=== PATIENT | male | born 1965 | race Caucasian/White ===

== ENCOUNTER 2024-09-02 11:05 | Inpatient (IN) | payer MEDICAID, OTHER ==
[~2024-09-02] VITALS: Ht 167.6 cm; Wt 74.1 kg
[2024-09-02] MEDS: IV NS 1000 ML 1,000 ML IV ONE (11:49)
[2024-09-02 11:53] LABS: BASOPHILS # (AUTO) 0.1 K/UL (0.0-0.2); BASOPHILS % (AUTO) 0.7 % (0.0-2.0); EOSINOPHILS # (AUTO) 0.4 K/uL (0.0-0.7); EOSINOPHILS % (AUTO) 3.7 % (0.0-7.0); HEMATOCRIT 38.3 % (36.7-47.1); HEMOGLOBIN 12.1 g/dL (12.5-16.3); LYMPHOCYTES # (AUTO) 0.9 K/uL (0.8-4.8); LYMPHOCYTES % (AUTO) 8.2 % (20.5-51.5); MEAN CORPUSCULAR HEMOGLOBIN 26.1 uug (23.8-33.4); MEAN CORPUSCULAR HGB CONC 32 g/dL (32.5-36.3); MEAN CORPUSCULAR VOLUME 82.4 fL (73.0-96.2); MONOCYTES # (AUTO) 0.9 K/uL (0.1-1.30); MONOCYTES % (AUTO) 8.3 % (0.0-11.0); NEUTROPHILS # (AUTO) 8.9 K/uL (1.8-8.9); NEUTROPHILS % (AUTO) 79.1 % (38.5-71.5); PLATELET COUNT (AUTO) 202 K/uL (152-348); RED BLOOD CELL COUNT(AUTO) 4.65 MIL/uL (4.06-5.63); RED CELL DISTRIBUTION WIDTH 15.3 % (12.1-16.2); WHITE BLOOD COUNT (AUTO) 11.3 K/uL (3.6-10.2)
[2024-09-02 11:58] LABS: DIFFERENTIAL COMMENT 1
[2024-09-02 12:02] LABS: CALCIUM 8.5 mg/dL (8.5-10.1); CREATININE 4.4 mg/dL (0.6-1.3); POTASSIUM 3.6 mmol/L (3.5-5.1)
[2024-09-02 12:15] LABS: ALBUMIN 3.3 g/dL (3.4-5.0); BILIRUBIN,DIRECT 0.1 mg/dL (0.0-0.2); BILIRUBIN,TOTAL 0.2 mg/dL (0.2-1.0); TOTAL PROTEIN, SERUM 7.3 g/dL (6.4-8.2)
[2024-09-02 13:30] LABS: *BILIRUBIN,URIN NEGATIVE (NEGATIVE); *BLOOD, URINE 1+ (NEGATIVE); *CLARITY,URINE CLOUDY (CLEAR); *COLOR,URINE YELLOW (YELLOW); *KETONES,URINE NEGATIVE (NEGATIVE); *PROTEIN,URINE 3+ (NEGATIVE); *UROBILINOGEN,URINE 0.2 E.U./dl (NORMAL); LEUKOCYTE ESTERASE ,URINE 1+ (NEGATIVE); NITRITE, URINE NEGATIVE (NEGATIVE); UGLUCOSE NEGATIVE (NEGATIVE)
[2024-09-02 13:36] LABS: BACTERIA,URINE FEW /HPF (NONE SEEN); URINE AMORPHOUS URATE MODERATE /HPF; WBC,URINE 20-50 /HPF (0-3)
[2024-09-02 15:17] VITALS: BP 172/84; TEMP 98.4
[2024-09-02] MEDS ORDERED: ACET325T53 PO (16:58)
[2024-09-02] MEDS ORDERED: ALOG25TA2 PO (16:58)
[2024-09-02] MEDS ORDERED: AMLO10TA59 PO (16:58)
[2024-09-02] MEDS ORDERED: APIX2.5T PO (16:59)
[2024-09-02] MEDS ORDERED: ASCO500C18 PO (17:00)
[2024-09-02] MEDS ORDERED: CLOP75TA33 PO (17:00)
[2024-09-02] MEDS ORDERED: ROSU10TA2 PO (17:01)
[2024-09-02] MEDS ORDERED: DOCU250C14 PO (17:01)
[2024-09-02] MEDS ORDERED: FURO40TA5 PO (17:02)
[2024-09-02] MEDS ORDERED: DEXT38GE12 PO (17:03)
[2024-09-02] MEDS ORDERED: INSU100V28 SQ ×2 (17:04→17:05)
[2024-09-02] MEDS ORDERED: HYDR25TA86 PO (17:06)
[2024-09-02] MEDS ORDERED: METO25TA6 PO (17:08)
[2024-09-02] MEDS ORDERED: OMEP20TA20 PO (17:08)
[2024-09-02] MEDS ORDERED: MULT-225 PO (17:08)
[2024-09-02] MEDS ORDERED: SENN8.6T19 PO (17:09)
[2024-09-02] MEDS ORDERED: hydrALAZINE HCL 25 MG TABLET PO PRN (18:15)
[2024-09-02] MEDS ORDERED: ACETAMINOPHEN 325 MG TABLET PO PRN (18:15)
[2024-09-02 18:16] VITALS: BP 165/87; O2SAT 98
[2024-09-02] MEDS: AMLODIPINE 10 MG TABLET PO SCH (18:43)
[2024-09-02] MEDS: APIXABAN 2.5 MG TABLET PO SCH (18:44)
[2024-09-02 19:40] VITALS: BP 138/70; TEMP 97.9; O2SAT 98
[2024-09-02] MEDS: SENNOSIDES 1 TABLET PO SCH (20:18)
[2024-09-02] MEDS: ATORVASTATIN 20 MG TABLET PO SCH (20:18)
[2024-09-02] MEDS ORDERED: TEMAZEPAM 15 MG CAPSULE PO PRN (21:00)
[2024-09-02] MEDS ORDERED: HYDROMORPHONE 1 MG/1 ML DISP.SYRIN IV PRN (21:00)
[2024-09-02] MEDS ORDERED: ONDANSETRON 4 MG/2 ML VIAL IV PRN (21:00)
[2024-09-02] MEDS: DOCUSATE SODIUM 250 MG CAPSULE PO SCH (21:44)
[2024-09-02] MEDS ORDERED: DEXTROSE 50% 50 ML DISP.SYRIN IV PRN (22:00)
[2024-09-02] MEDS ORDERED: CEFTRIAXONE /D5W 50ML IVPB **ER PYXIS IV ONE (22:10)
[2024-09-02] MEDS: CEFTRIAXONE 1 G in IV DEXTROSE 5% 50 ML IV SCH (22:20)
[2024-09-02] MEDS: IV 1/2NS 1000 ML 1,000 ML IV PRN (23:08)
[2024-09-02 23:35] VITALS: BP 146/73; TEMP 98.6; O2SAT 97
[2024-09-03 05:54] VITALS: BP 139/67; TEMP 98.5; O2SAT 96
[2024-09-03] MEDS: PANTOPRAZOLE SODIUM 40 MG TABLET.DR PO SCH (06:06)
[2024-09-03] MEDS: BLOOD SUGAR DIAGNOSTIC 1 EACH STRIP VI SCH (06:36)
[2024-09-03 07:39] LABS: BASOPHILS # (AUTO) 0.1 K/UL (0.0-0.2); BASOPHILS % (AUTO) 0.6 % (0.0-2.0); EOSINOPHILS # (AUTO) 0.3 K/uL (0.0-0.7); EOSINOPHILS % (AUTO) 3.2 % (0.0-7.0); HEMATOCRIT 33.8 % (36.7-47.1); HEMOGLOBIN 11.3 g/dL (12.5-16.3); LYMPHOCYTES # (AUTO) 1.1 K/uL (0.8-4.8); LYMPHOCYTES % (AUTO) 10.1 % (20.5-51.5); MEAN CORPUSCULAR HEMOGLOBIN 27.3 uug (23.8-33.4); MEAN CORPUSCULAR HGB CONC 34 g/dL (32.5-36.3); MEAN CORPUSCULAR VOLUME 81.7 fL (73.0-96.2); MONOCYTES # (AUTO) 0.8 K/uL (0.1-1.30); MONOCYTES % (AUTO) 7.8 % (0.0-11.0); NEUTROPHILS # (AUTO) 8.2 K/uL (1.8-8.9); NEUTROPHILS % (AUTO) 78.3 % (38.5-71.5); PLATELET COUNT (AUTO) 185 K/uL (152-348); RED BLOOD CELL COUNT(AUTO) 4.13 MIL/uL (4.06-5.63); RED CELL DISTRIBUTION WIDTH 15.1 % (12.1-16.2); WHITE BLOOD COUNT (AUTO) 10.5 K/uL (3.6-10.2)
[2024-09-03 07:47] LABS: ALBUMIN 2.7 g/dL (3.4-5.0); BILIRUBIN,TOTAL 0.2 mg/dL (0.2-1.0); CREATININE 4.1 mg/dL (0.6-1.3); DIFFERENTIAL COMMENT 1; MAGNESIUM 2.2 mg/dL (1.8-2.4); PHOSPHOROUS 4.1 mg/dL (2.5-4.9); POTASSIUM 3.4 mmol/L (3.5-5.1); TOTAL PROTEIN, SERUM 6.1 g/dL (6.4-8.2)
[2024-09-03 07:51] VITALS: BP 143/78; TEMP 98.4; O2SAT 97
[2024-09-03] MEDS: METOPROLOL TARTRATE 25 MG TABLET PO SCH (08:44)
[2024-09-03] MEDS ORDERED: ALOGLIPTIN BENZOATE PO SCH (09:00)
[2024-09-03 09:01] LABS: THYROID STIMULATING HORMONE 0.518 mIU/mL (0.358-3.740)
[2024-09-03 11:12] VITALS: BP 145/75; TEMP 98; O2SAT 97
[2024-09-03] MEDS: POTASSIUM CHLORIDE 20 MEQ TAB.PRT.SR PO ONE (13:10)
[2024-09-03 14:24] VITALS: BP 142/72; TEMP 98.4; O2SAT 96
[2024-09-03 16:44] LABS: *CREATININE,URINE 31.2 mg/dL (30-125); *URINE TOTAL PROTEIN RANDOM 150.8 mg/dL (<150/24HR)
[2024-09-03 16:49] LABS: *BILIRUBIN,URIN NEGATIVE (NEGATIVE); *BLOOD, URINE 1+ (NEGATIVE); *CLARITY,URINE CLEAR (CLEAR); *COLOR,URINE YELLOW (YELLOW); *KETONES,URINE NEGATIVE (NEGATIVE); *PROTEIN,URINE 3+ (NEGATIVE); *UROBILINOGEN,URINE 0.2 E.U./dl (NORMAL); LEUKOCYTE ESTERASE ,URINE 1+ (NEGATIVE); NITRITE, URINE NEGATIVE (NEGATIVE); UGLUCOSE TRACE (NEGATIVE)
[2024-09-03 17:06] LABS: BACTERIA,URINE FEW /HPF (NONE SEEN); SQUAMOUS EPITHELIAL CELL,UR FEW /HPF (NONE SEEN); WBC,URINE 20-50 /HPF (0-3)
[2024-09-03] MEDS: INSULIN REGULAR, HUMAN 1000 UNIT/10 ML VIAL SQ PRN (17:42)
[2024-09-03 19:40] VITALS: BP 141/68; TEMP 98.7; O2SAT 95
[2024-09-03 22:33] LABS: BASOPHILS # (AUTO) 0.1 K/UL (0.0-0.2); BASOPHILS % (AUTO) 0.8 % (0.0-2.0); DIFFERENTIAL COMMENT 1; EOSINOPHILS # (AUTO) 0.4 K/uL (0.0-0.7); EOSINOPHILS % (AUTO) 3.9 % (0.0-7.0); HEMATOCRIT 33.7 % (36.7-47.1); HEMOGLOBIN 11.2 g/dL (12.5-16.3); LYMPHOCYTES # (AUTO) 1.4 K/uL (0.8-4.8); LYMPHOCYTES % (AUTO) 15.2 % (20.5-51.5); MEAN CORPUSCULAR HEMOGLOBIN 26.6 uug (23.8-33.4); MEAN CORPUSCULAR HGB CONC 33 g/dL (32.5-36.3); MEAN CORPUSCULAR VOLUME 80.4 fL (73.0-96.2); MONOCYTES # (AUTO) 0.9 K/uL (0.1-1.30); MONOCYTES % (AUTO) 10.1 % (0.0-11.0); NEUTROPHILS # (AUTO) 6.3 K/uL (1.8-8.9); PLATELET COUNT (AUTO) 171 K/uL (152-348); RED CELL DISTRIBUTION WIDTH 15.2 % (12.1-16.2)
[2024-09-03 22:34] LABS: MAGNESIUM 2.2 mg/dL (1.8-2.4); PHOSPHOROUS 3.5 mg/dL (2.5-4.9)
[2024-09-03 23:45] VITALS: BP 95/47; TEMP 98.3; O2SAT 99
[2024-09-04 05:38] LABS: BASOPHILS # (AUTO) 0.1 K/UL (0.0-0.2); BASOPHILS % (AUTO) 0.7 % (0.0-2.0); EOSINOPHILS # (AUTO) 0.3 K/uL (0.0-0.7); EOSINOPHILS % (AUTO) 3.8 % (0.0-7.0); HEMATOCRIT 31.4 % (36.7-47.1); HEMOGLOBIN 10.7 g/dL (12.5-16.3); LYMPHOCYTES # (AUTO) 1.2 K/uL (0.8-4.8); LYMPHOCYTES % (AUTO) 14.3 % (20.5-51.5); MEAN CORPUSCULAR HEMOGLOBIN 27.8 uug (23.8-33.4); MEAN CORPUSCULAR HGB CONC 34 g/dL (32.5-36.3); MONOCYTES # (AUTO) 0.7 K/uL (0.1-1.30); MONOCYTES % (AUTO) 8.5 % (0.0-11.0); NEUTROPHILS # (AUTO) 5.9 K/uL (1.8-8.9); NEUTROPHILS % (AUTO) 72.7 % (38.5-71.5); PLATELET COUNT (AUTO) 147 K/uL (152-348); RED BLOOD CELL COUNT(AUTO) 3.83 MIL/uL (4.06-5.63); RED CELL DISTRIBUTION WIDTH 15.3 % (12.1-16.2); WHITE BLOOD COUNT (AUTO) 8.1 K/uL (3.6-10.2)
[2024-09-04 05:53] LABS: DIFFERENTIAL COMMENT 1
[2024-09-04 05:58] VITALS: BP 114/42; TEMP 98.2; O2SAT 98
[2024-09-04 06:01] LABS: ALBUMIN 2.1 g/dL (3.4-5.0); BILIRUBIN,TOTAL 0.2 mg/dL (0.2-1.0); CALCIUM 7.2 mg/dL (8.5-10.1); CREATININE 3.4 mg/dL (0.6-1.3); MAGNESIUM 1.9 mg/dL (1.8-2.4); PHOSPHOROUS 3.2 mg/dL (2.5-4.9); TOTAL PROTEIN, SERUM 5.3 g/dL (6.4-8.2)
[2024-09-04 08:00] VITALS: BP 150/80; TEMP 98.8; O2SAT 96
[2024-09-04 12:04] VITALS: BP 157/76; TEMP 99.1; O2SAT 96
[2024-09-04] MEDS: POTASSIUM CHLORIDE 10 MEQ TAB.PRT.SR PO ONE (12:56)
[2024-09-04 16:00] VITALS: BP 146/69; TEMP 98.6; O2SAT 98
[2024-09-04 20:00] VITALS: BP 141/82; TEMP 98.9; O2SAT 97
[2024-09-05] VITALS (8 sets, daily range): BP systolic 130–168; BP diastolic 61–87; TEMP 98.3–99.1; O2SAT 95–100
[2024-09-05] MEDS: hydrALAZINE HCL 25 MG TABLET PO PRN (18:35)
[2024-09-05 21:10] LABS: PTH, INTACT 89 pg/mL (15-65)
[2024-09-06 05:28] VITALS: BP 161/76; TEMP 98.1; O2SAT 96
[2024-09-06 09:40] LABS: BASOPHILS # (AUTO) 0.1 K/UL (0.0-0.2); EOSINOPHILS # (AUTO) 0.3 K/uL (0.0-0.7); HEMATOCRIT 36.4 % (36.7-47.1); HEMOGLOBIN 12.2 g/dL (12.5-16.3); LYMPHOCYTES # (AUTO) 1.1 K/uL (0.8-4.8); LYMPHOCYTES % (AUTO) 13.7 % (20.5-51.5); MEAN CORPUSCULAR HEMOGLOBIN 27.2 uug (23.8-33.4); MEAN CORPUSCULAR HGB CONC 33 g/dL (32.5-36.3); MEAN CORPUSCULAR VOLUME 81.5 fL (73.0-96.2); MONOCYTES # (AUTO) 0.6 K/uL (0.1-1.30); MONOCYTES % (AUTO) 7.7 % (0.0-11.0); NEUTROPHILS # (AUTO) 5.8 K/uL (1.8-8.9); NEUTROPHILS % (AUTO) 73.6 % (38.5-71.5); PLATELET COUNT (AUTO) 190 K/uL (152-348); RED BLOOD CELL COUNT(AUTO) 4.46 MIL/uL (4.06-5.63); WHITE BLOOD COUNT (AUTO) 7.9 K/uL (3.6-10.2)
[2024-09-06 09:54] LABS: ALBUMIN 2.8 g/dL (3.4-5.0); BILIRUBIN,TOTAL 0.3 mg/dL (0.2-1.0); CALCIUM 8.6 mg/dL (8.5-10.1); CREATININE 3.7 mg/dL (0.6-1.3); MAGNESIUM 2.1 mg/dL (1.8-2.4); PHOSPHOROUS 3.5 mg/dL (2.5-4.9); POTASSIUM 4.1 mmol/L (3.5-5.1); TOTAL PROTEIN, SERUM 6.8 g/dL (6.4-8.2)
[2024-09-06 16:00] VITALS: BP 146/77; TEMP 98.4; O2SAT 99
[2024-09-06] MEDS ORDERED: Blood Sugar Diagnostic VI (17:03)
[2024-09-06] MEDS ORDERED: Sulfameth/Trimeth 800/160 Mg PO (17:03)
[2024-09-06] MEDS ORDERED: ASPI-618 PO (17:03)
[2024-09-06] MEDS ORDERED: ZINC220T4 PO (17:03)
[2024-09-06] MEDS ORDERED: FOLI0.8T41 PO (17:03)
[2024-09-06] MEDS ORDERED: METO50TA7 PO (17:03)
[2024-09-06] MEDS ORDERED: TEMA15CA PO (17:03)
[2024-09-06] MEDS ORDERED: APIX2.5T PO (17:03)
[2024-09-06] MEDS ORDERED: ASCO500C18 PO (17:03)
[2024-09-06] MEDS ORDERED: DEXT50DI8 IV (17:03)
[2024-09-06] MEDS ORDERED: GLIM1TAB PO (17:03)
[2024-09-06] MEDS ORDERED: PANT40TA49 PO (17:03)
[2024-09-06 17:27] VITALS: BP 161/76
[2024-09-06] MEDS ORDERED: SULFAMETH/TRIMETH 800/160 MG TABLET PO SCH (21:00)
== END 2024-09-06 18:55 | DRG 463 ==
LOC: ER 11:05 → TELE3 14:35 → MEDSURG3 09-05 07:45
PROVIDERS: ADMIT Internal Medicine; ATTEND Internal Medicine
DX: N39.0 Urinary tract infection, site not specified (principal); N17.0 Acute kidney failure with tubular necrosis; D68.59 Other primary thrombophilia; I13.0 Hypertensive heart and chronic kidney disease with heart failure and stage 1 through stage 4 chronic kidney disease, or unspecified chronic kidney disease; I50.9 Heart failure, unspecified; B96.1 Klebsiella pneumoniae [K. pneumoniae] as the cause of diseases classified elsewhere; E11.22 Type 2 diabetes mellitus with diabetic chronic kidney disease; T87.43 Infection of amputation stump, right lower extremity; E11.51 Type 2 diabetes mellitus with diabetic peripheral angiopathy without gangrene; E11.65 Type 2 diabetes mellitus with hyperglycemia; R80.9 Proteinuria, unspecified; Z16.12 Extended spectrum beta lactamase (ESBL) resistance; Z89.511 Acquired absence of right leg below knee; I70.201 Unspecified atherosclerosis of native arteries of extremities, right leg; Z79.4 Long term (current) use of insulin; N18.9 Chronic kidney disease, unspecified; I25.10 Atherosclerotic heart disease of native coronary artery without angina pectoris; E78.5 Hyperlipidemia, unspecified; K21.9 Gastro-esophageal reflux disease without esophagitis; Z74.09 Other reduced mobility; F01.50 Vascular dementia, unspecified severity, without behavioral disturbance, psychotic disturbance, mood disturbance, and anxiety; T50.1X5A Adverse effect of loop [high-ceiling] diuretics, initial encounter; Y92.129 Unspecified place in nursing home as the place of occurrence of the external cause; Z79.01 Long term (current) use of anticoagulants; I44.4 Left anterior fascicular block; Z79.899 Other long term (current) drug therapy
CPT/HCPCS: 36415; 71045; 76770; 83550; 83735; 83970; 84100; 84155; 84165; 84300; 84443; 85025; 85610; 87077; 87086; A4606; A4663; G0378; J0696; J1815; J7040